=== PATIENT | male | born 1975 | race Two or more races ===

== ENCOUNTER 2018-11-03 19:26 | Emergency (ER) | payer SELFPAY ==
[~2018-11-03] VITALS: Ht 170.2 cm; Wt 75.0 kg
[2018-11-03] MEDS ORDERED: PERTUSS(ACELL),DIPH,TET VAC/PF 0.5 ML VIAL IM ONE (20:30)
[2018-11-03] MEDS ORDERED: ACETAMINOPHEN 325 MG TABLET PO ONE (20:30)
[2018-11-03] MEDS ORDERED: LIDOCAINE 1% 10 ML VIAL INJ ONE (21:00)
[2018-11-03] MEDS ORDERED: BACITRACIN 0.9 GM PACKET OINTMENT TP ONE (22:00)
[2018-11-03 22:20] VITALS: BP 129/78
== END 2018-11-03 22:45 | disposition home or self-care (01) ==
LOC: EMS 19:34
DX: S61.212A Laceration without foreign body of right middle finger without damage to nail, initial encounter (principal); W25.XXXA Contact with sharp glass, initial encounter; Y93.89 Activity, other specified; Y92.89 Other specified places as the place of occurrence of the external cause; Y99.8 Other external cause status
CPT/HCPCS: 12041; 73130; 90471; 90715; 99284; J3490